=== PATIENT | male | born 2000 | race Caucasian/White ===

== ENCOUNTER 2024-02-11 10:47 | Emergency (ER) | payer OTHER, SELFPAY ==
[2024-02-11 10:55] VITALS: BP 138/96
[2024-02-11 12:03] LABS: % Basophils 0.2 % (0-2); % Eosinophils 1.2 % (0-6); % Immature Granulocytes 0.2 % (0-0.5); % Lymphocytes 15.5 % (20.5-51.1); % Monocytes 10.7 % (1.7-9.3); % Neutrophils 72.2 % (42.2-75.2); Absolute Eosinophils 0.1 10^3/uL (0-0.7); Absolute Lymphocytes 0.9 10^3/uL (1.2-3.4); Absolute Monocytes 0.6 10^3/uL (0.1-0.6); Absolute Neutrophils 4.2 10^3/uL (1.4-6.5); Hematocrit 39.5 % (39.0-52.0); Hemoglobin 14.1 g/dL (13.0-18.0); Mean Corp Hgb Conc. 35.7 g/dL (33.0-37.0); Mean Corpuscular Hgb 31.2 pg (27.0-31.0); Mean Corpuscular Volume 87.4 fL (80.0-94.0); Nucleated Red Blood Cells % 0 % (-); Platelet Count 135 10^3/uL (130-400); Red Blood Cell Count 4.52 10^6/uL (4.70-6.10); White Blood Cell Count 5.8 10^3/uL (4.8-10.8)
[2024-02-11 12:06] LABS: ALT (SGPT) 19 U/L (0-50); AST (SGOT) 21 U/L (17-59); Albumin 4.6 g/dl (3.5-5.0); Alkaline Phosphatase 55 U/L (38-126); Blood Urea Nitrogen 17 mg/dl (9-20); Calcium 9.5 mg/dl (8.4-10.2); Carbon Dioxide 27 mmol/L (22-30); Chloride 101 mmol/L (98-107); Glucose 99 mg/dl (70-99); Potassium 4.4 mmol/L (3.5-5.1); Sodium 138 mmol/L (135-145); Total Bilirubin 0.4 mg/dl (0.2-1.3); eGFR > 60.00
[2024-02-11 12:09] LABS: COVID-19 Antigen Negative (Negative)
[2024-02-11] MEDS: BENADRYL 25 MG IV (12:36)
[2024-02-11] MEDS: REGLAN 10 MG IV (12:36)
[2024-02-11] MEDS: DECADRON 10 MG IV (12:36)
--- NOTE | 2024-02-11 13:08 | ED.GENMED ---
History of Present Illness
General
Chief Complaint: Headache
Source: patient
Time Seen by Provider: 02/11/24 11:33
History of Present Illness
History of Present Illness:
23-year-old male presenting to the emergency department for evaluation after he started to feel unwell this past with symptoms worsening throughout the last few days, symptoms including generalized body aches and fatigue, low-grade fever
with a Tmax of 100 on night, chills, headache described to be constant throbbing sensation, occasionally pulsatile and a state of intermittently feeling lightheaded. Patient states the headache is mostly to the frontal region but does feel
little bit in the back of his head as well. Patient has been taking Advil with last dose prior to arrival but has not had any relief with this. Patient has no other concerns at this time. Of note, patient works outside at a campground and was in
heavy thick brush over the last few days. He does not know if there were any ticks on him but states he did not see any and denies any rashes.
Past History
Past History
ED Past Medical History: None
ED Past Surgical History: None
Social History
Tobacco: Non-smoker
Alcohol: Occasional
Drug: None
Personal: Single
Living: with family
Employment: Employed
Review of Systems
Review of Systems
All Other Systems: ROS reviewed and negative except as documented in HPI and ROS
Phy Exam
Physical Exam
Physical Exam:
GENERAL: Alert , in no apparent distress
EYE: conjunctiva clear
NECK: Supple, no significant adenopathy. no signs of meningismus
ENT: o/p clr, mmm.
CARDIAC: Regular rate and rhythm
LUNGS: Clear breath sounds bilaterally, no acute respiratory distress, no wheezes/rales/rhonchi
NEUROLOGICAL: Alert and oriented, BOOTH x 4
SKIN: Warm and dry, skin intact.
MUSCULOSKELETAL: well perfused.
PSYCH: Normal and appropriate interaction.
Scores
Heart Failure Risk
Heart Failure Risk Score: Not Applicable
Heart Score for Chest Pain Patients
STEMI patient?: Not applicable
Withdrawal Assessment of Alcohol
Withdrawal Assessment Completed?: Not applicable
Course
Orders/Labs/Results
Orders:
Orders
02/11/24 11:46
COVID-19 Antigen Urgent
Source: Nasal Swab
Complete Blood Count/With Diff Urgent
Comprehensive Metabolic Panel Urgent
Lyme Progressive Urgent
Date Specimen was Collected: 02/11/24
Time Specimen was Collected: 11:46
Comment: add on
02/11/24 12:27
Add On- LAB Urgent
Tests Added?: lyme progressive
Dexamethasone Sod Phosphate [Decadron] 10 mg IV NOW STA
Diphenhydramine [Benadryl] 25 mg IV NOW STA
Metoclopramide [Reglan] 10 mg IV NOW STA
Abnormal Lab Results
02/11/24
11:46
RBC 4.52 L 10^6/uL
(4.70-6.10)
MCH 31.2 H pg
(27.0-31.0)
Absolute Lymphs (auto) 0.9 L 10^3/uL
(1.2-3.4)
Lymphocytes % 15.5 L %
(20.5-51.1)
Monocytes % 10.7 H %
(1.7-9.3)
02/11/24 11:46
02/11/24 11:46
Vital Signs
Initial and Last Documented VS:
Initial Vital Signs
Temp Pulse BP Pulse Ox
99.1 F 54 138/96 100
02/11/24 10:55 02/11/24 10:55 02/11/24 10:55 02/11/24 10:55
Last Documented Vital Signs
Temp Pulse BP Pulse Ox
99.1 F 54 138/96 100
02/11/24 10:55 02/11/24 10:55 02/11/24 10:55 02/11/24 10:55
MDM/Problems Addressed
Differential Diagnosis Includes:
viral syndrome, lyme, covid, minimal concern for meningitis, migraine, tension headache
MDM/Problems Addressed:
23-year-old male presenting to the emergency department for evaluation of generally feeling unwell since , flulike symptoms seem to have subsided however patient still with headache. Afebrile on arrival here. No acute distress. No
meningeal signs on exam. 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 Will check labs, Lyme test, treat with Reglan, Benadryl, Decadron and fluids. Reassessment
following
*Pulse Oximetry
Patient hypoxic: no
*Critical Care Note
Total Time (30-74mins, 75-104mins- exclusive of procedures): Not Applicable
Data Reviewed
Source: patient and family
Further Testing Considered But Not Given:
considering LP if symptoms do not improve
Patient Management
Escalation/DeEscalation of care consider admission/obs:
On re-evaluation patient noting he feels significant improvement of headache. still with very mild but feels well to go home. Discussed lumbar puncture at length with patient and mother. They were okay with forgoing this test at this time. Aware of
return precautions to ED. Will notify of lyme results if positive.
ED Attending Note
-
Portions of this chart may have been created with voice recognition software.� Occasional wrong word or��sound alike� substitutions may have occurred due to the inherent limitations of voice recognition software.
Discharge Plan
Departure
Patient Disposition: Home (Routine Discharge)
Date of Disposition: 02/11/24
Time of Disposition: 13:44
Patient with high blood pressure during this ER visit?: Yes
Discharge Problem:
Headache
Instructions: Headache, Adult (DC)
Prescriptions:
No Action
amoxicillin-pot clavulanate 400 MG/5 ML suspension for reconstitution
400 mg PO BID Qty: 100 0RF
Referrals:
Toyin Copeland DO [Family Provider] -
Discharge Date and Time
Print Language: CANADIAN
[2024-02-12 13:45] LABS: Lyme Antibody Screen, EIA Negative (Negative)
== END 2024-02-11 14:07 | disposition home or self-care (01) ==
LOC: EMR 10:47
PROVIDERS: Physician Assistant Medical; EMERGENCY PHYSICIAN Student in an Organized Health Care Education/Training Program; FAMILY PHYSICIAN Family Medicine
DX: R51.9 Headache, unspecified (principal)
CPT/HCPCS: 99284; 96374; 96375; 80053; 85025; 86618; 87811